=== PATIENT | female | born 1930 | race Caucasian/White ===

== ENCOUNTER 2016-04-14 08:08 | Day surgery (SDC) | payer OTHER ==
[2016-04-14 08:39] LABS: BASOPHIL 0.8 % (0-2.0); EOSINOPHIL 7.3 % (0-4.5); MCH 28.6 pg (25.7-33.7); MCHC 33.2 g/dl (32.0-36.0); MEAN CELL VOLUME 86.1 fl (80-96); MEAN PLT VOLUME 8.4 fl (7.5-11.1); NEUTROPHILS 47.7 % (42.8-82.8); PLATELET COUNT 278 K/MM3 (134-434); RDW 13.5 % (11.6-15.6); WHITE BLOOD COUNT 6.9 K/mm3 (4.0-10.0)
[2016-04-14 09:00] LABS: C-REACTIVE PROTEIN 0.5 MG/DL (0.00-0.3); CALCIUM 9.5 mg/dL (8.5-10.1); CREATININE 1.1 mg/dL (0.55-1.02)
[2016-04-14] MEDS ORDERED: diphenhydrAMINE HCL 25 MG CAPSULE (FP) PO ONE (10:00)
[2016-04-14] MEDS ORDERED: SODIUM CHLORIDE 250 ML IV ONE (10:00)
[2016-04-14] MEDS ORDERED: ACETAMINOPHEN 325 MG TABLET (FP) PO ONE (10:00)
[2016-04-14] MEDS ORDERED: HYDROCORTISONE SOD SUCCINATE 100 MG/2 ML VIAL IVPB ONE (10:00)
[2016-04-14] MEDS ORDERED: INFLIXIMAB IVPB ONE (10:30)
[2016-04-14] MEDS ORDERED: SODIUM CHLORIDE IVPB ONE (10:30)
[2016-04-14] MEDS ORDERED: EPINEPHrine/PF 1 MG/1 ML (1:1,000) AMPULE IV ONE (13:30)
[2016-04-14] MEDS ORDERED: methylPREDNISolone NA SUCC 40 MG/1 ML VIAL IVPB ONE (13:30)
[2016-04-14 14:34] VITALS: BMI 21.9
[2016-04-14 14:51] VITALS: TEMP 97.9
[2016-04-14 17:29] VITALS: BP 135/71; PULSE 84
== END 2016-04-14 15:29 | disposition home or self-care (01) ==
LOC: JINFUSION 08:08 → J7W 08:08 → JINFUSION 15:29
PROVIDERS: ATTEND Internal Medicine Gastroenterology
DX: K50.90 Crohn's disease, unspecified, without complications (principal)
CPT/HCPCS: 96361; 96413; 96415; J1745; 36415; 80048; 85025; 86140